=== PATIENT | male | born 1990 | race Two or more races ===

== ENCOUNTER 2023-01-30 16:48 | Emergency (ER) | payer MEDICAID, OTHER ==
[~2023-01-30] VITALS: Ht 174 cm; Wt 70.3 kg
[2023-01-30 18:28] VITALS: BP 130/79
[2023-01-30] MEDS ORDERED: CIPR500T4 PO (18:58)
[2023-01-30] MEDS ORDERED: IBUP-1456 PO (18:58)
== END 2023-01-30 19:05 | disposition home or self-care (01) ==
LOC: ER 16:48
DX: R51.9 Headache, unspecified (principal)